=== PATIENT | female | born 1950 | race Two or more races ===

== ENCOUNTER 2022-11-02 20:19 | Emergency (ER) | payer OTHER ==
[~2022-11-02] VITALS: Ht 157.5 cm; Wt 98.9 kg
[2022-11-02] MEDS ORDERED: ATENOLOL100 MG PO (20:37)
[2022-11-02] MEDS ORDERED: SYNTHROID150 MCG PO (20:37)
[2022-11-02] MEDS ORDERED: GLIMEPIRIDE1 MG PO (20:38)
[2022-11-02] MEDS ORDERED: ATORVASTATIN CA20 MG PO (20:38)
== END 2022-11-02 22:50 | disposition home or self-care (01) ==
LOC: ER 20:19
DX: M94.0 Chondrocostal junction syndrome [Tietze] (principal)

== ENCOUNTER 2023-03-16 08:23 | Emergency (ER) | payer OTHER ==
[~2023-03-16] VITALS: Ht 157.5 cm; Wt 93.0 kg
[~2023-03-16 08:23] MED LIST: ATENOLOL100 MG PO; ATORVASTATIN CA20 MG PO; GLIMEPIRIDE1 MG PO; SYNTHROID150 MCG PO
[2023-03-16] MEDS ORDERED: LOTREL 5-10 MG1 CAP (08:44)
[2023-03-16] MEDS ORDERED: CLONAZEPAM0.5 MG (08:44)
[2023-03-16 10:23] LABS: HEMOGLOBIN 11.6 g/dL (12.0-15.00); MEAN CELL VOLUME 87.6 fL (80.00-100.00); RED CELL DISTRIBUTION WIDTH 14.5 % (11.5-14.5)
[2023-03-16 10:48] LABS: CREATININE SERUM 1.37 mg/dL (0.55-1.02); GFR 38.01; POTASSIUM 4.21 mEq/L (3.5-5.1)
[2023-03-16 10:54] LABS: PLATELET COUNT 115 K/uL (150-450)
== END 2023-03-16 11:34 | disposition home or self-care (01) ==
LOC: ER 08:23
PROVIDERS: General Practice
DX: J10.1 Influenza due to other identified influenza virus with other respiratory manifestations (principal); Z20.822 Contact with and (suspected) exposure to COVID-19

== ENCOUNTER → 2024-05-22 | Emergency (ER) | payer OTHER ==
[~2024-05-22] VITALS: Ht 157.5 cm; Wt 89.4 kg
[~2024-05-22] MED LIST changes: +BENZONATATE 100 MG CAPSULE PO ONE; +CLONAZEPAM0.5 MG; +GUAIFENESIN 200 MG/10 ML BLIST.PACK PO ONE; +LOTREL 5-10 MG1 CAP
== END | disposition home or self-care (01) ==
LOC: ER 10:33
DX: J06.9 Acute upper respiratory infection, unspecified (principal); R05.9 Cough, unspecified; Z20.822 Contact with and (suspected) exposure to COVID-19; I10 Essential (primary) hypertension